=== PATIENT | female | born 1995 | race Hispanic/Latino ===

== ENCOUNTER 2024-09-19 05:18 | Inpatient (IN) | payer MEDICAID, OTHER, SELFPAY ==
[~2024-09-19 05:18] MED LIST: Ondansetron PF 4 MG/2 ML Vial IVP PRN; Promethazine HCl 25 MG/ML VIAL IM PRN; fentaNYL 50 mcg/mL 1 mL Vial SLOW IVP PRN; hydrALAZINE 20 MG/ML VIAL SLOW IVP PRN
[2024-09-19 06:21] LABS: Hematocrit 37.2 % (34.9-44.5); Hemoglobin 11.7 g/dL (12.0-15.5); Mean Corpuscular HGB CONC 31.5 g/dL (32.0-36.0); Mean Corpuscular Hemoglobin 25.6 pg (27.0-33.0); Mean Corpuscular Volume 81.4 fL (81.6-98.3); Mean Platelet Volume 12.4 fL (7.4-10.4); Platelet Count 195 10x3/uL (150-450); RBC Distribution Width 16.5 % (11.5-14.5); Red Blood Cell (RBC) Count 4.57 10x6/uL (3.90-5.03); White Blood Cell (WBC) Count 9.1 10x3/uL (3.5-10.5)
[2024-09-19 06:27] VITALS: BMI 29.0
[2024-09-19] MEDS: Oxytocin 30 units/NS 500 ML 500 ML IV SCH (06:40)
[2024-09-19 06:54] LABS: Syphilis Antibody Nonreactive (Nonreactive); Syphilis Antibody Index 0.06 S/CO (<1.00 Non-Reactive)
[2024-09-19 06:55] LABS: HBsAg Index 0.24 S/CO (0-0.99); Hep B Surf Ag - L&D Non-Reactive S/CO (NonReactive)
[2024-09-19 06:56] LABS: HIV (1/2) Antibody/Antigen Non-Reactive (NonReactive); HIV 1/2 INDEX 0.06 S/CO (<1.00)
[2024-09-19] MEDS ORDERED: Moisturizing Cream (Eucerin) 113 GM JAR TOP PRN (08:53)
[2024-09-19] MEDS ORDERED: ePHEDrine Sulfate 50 MG/10 ML VIAL SLOW IVP PRN (08:53)
[2024-09-19] MEDS ORDERED: Naloxone HCl 0.4 mg/ml Vial IVP PRN ×2 (08:53)
[2024-09-19] MEDS ORDERED: diphenhydrAMINE 50 MG/ML VIAL IVP PRN (08:53)
[2024-09-19] MEDS ORDERED: Acetaminophen 325 MG TAB PO PRN (08:53)
[2024-09-19] MEDS ORDERED: Promethazine HCl 25 MG/ML VIAL IM PRN (08:53)
[2024-09-19] MEDS ORDERED: Lactated Ringer's 500 ML IV PRN (08:53)
[2024-09-19] MEDS ORDERED: Ondansetron PF 4 MG/2 ML Vial IVP PRN ×2 (08:53→14:47)
[2024-09-19] MEDS ORDERED: fentaNYL 2 mcg/Ropivacaine 0.2% Epidural 100 ML CADD EPIDURAL SCH (09:00)
[2024-09-19] MEDS: fentaNYL/Ropivacaine Epidural 100 ML ONE (09:13)
[2024-09-19] MEDS ORDERED: Bupivacaine HCl 0.5%/Epinephrine 1:200,000/PF 30 ml Vial ONE (13:00)
[2024-09-19] MEDS ORDERED: Bupivacaine/Epinephrine 0.25% 30 ML VIAL ONE (13:00)
[2024-09-19] MEDS ORDERED: Milk Of Magnesia 30 ML UDCUP PO PRN (14:47)
[2024-09-19] MEDS ORDERED: Bisacodyl 10 MG SUPP PR PRN (14:47)
[2024-09-19] MEDS ORDERED: Boostrix 0.5 ML (Tdap) VIAL (>/=7 yrs of age) IM ONE (14:47)
[2024-09-19] MEDS ORDERED: hydrALAZINE 20 MG/ML VIAL SLOW IVP PRN (14:47)
[2024-09-19] MEDS ORDERED: Oxytocin 30 units/NS 500 ML 500 ML IV SCH (15:00)
[2024-09-19] MEDS: Ferrous Sulfate 325 MG TAB PO SCH (18:30)
[2024-09-19] MEDS: Ibuprofen 800 MG TAB PO SCH (18:41)
[2024-09-19] MEDS: Dexmedetomidine 200 MCG/2 ML VIAL ONE (20:15)
[2024-09-19] MEDS: Docusate 100 MG CAP PO SCH (21:56)
[2024-09-19] MEDS: HYDROcodone/Acetaminophen 5/325 mg Tablet PO PRN (22:53)
[2024-09-20 03:50] VITALS: TEMP 98.2
[2024-09-20 11:03] VITALS: BP 109/55
[2024-09-20] MEDS: Prenatal Vitamin 1 TAB PO SCH (12:21)
== END 2024-09-20 16:30 | disposition home or self-care (01) | DRG 807 ==
LOC: CSHLD 05:18 → CSHPP 16:55
PROVIDERS: ADMIT Obstetrics & Gynecology; ATTEND Obstetrics & Gynecology
PROC: 10E0XZZ Delivery of Products of Conception, External Approach (ICD-10-PCS; principal; 2024-09-19)
PROC: 0HQ9XZZ Repair Perineum Skin, External Approach (ICD-10-PCS; 2024-09-19)
DX: O48.0 Post-term pregnancy (principal); Z37.0 Single live birth; Z3A.40 40 weeks gestation of pregnancy; O70.0 First degree perineal laceration during delivery
CPT/HCPCS: 36415; 51702; 85027; 86780; 86850; 86900; 86901; 87340; 87389; J2590